=== PATIENT | female | born 1975 | race Hispanic/Latino ===

== ENCOUNTER 2025-02-08 18:47 | Emergency (ER) | payer OTHER ==
[~2025-02-08] VITALS: Ht 162.6 cm; Wt 72.6 kg
[2025-02-08 19:13] LABS: IMMATURE GRANULOCYTE ABSOLUTE 0.05 K/uL (0-1); NUCLEATED RED BLOOD CELLS 0.0 % (0.0-0.19); PLATELET COUNT (AUTO) 388 K/uL (130-400); RED BLOOD CELL COUNT(AUTO) 4.75 MIL/uL (4.00-5.50); RED CELL DISTRIBUTION WIDTH 13.1 % (11.0-15.5); WHITE BLOOD COUNT (AUTO) 11.0 K/uL (4.8-10.8)
[2025-02-08 19:23] LABS: CREATININE 0.7 mg/dL (0.5-1.0); GLOMERULAR FILTR. RATE CALC 107.0 mL/min (>90); GLUCOSE,RANDOM 100.0 mg/dL (70-105); SODIUM SERUM 135.0 mmol/L (136-145); UREA NITROGEN, BLOOD 9.0 mg/dL (7-18)
[2025-02-08] MEDS: ASPIRIN 325MG TAB PO ONE (19:30)
[2025-02-08 19:32] LABS: CREATINE KINASE, TOTAL 83.0 U/L (21-232)
--- NOTE | 2025-02-08 19:42 | ERN ---
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 Somewhere around 4:00 p.m. She stated that she was at the [employer] drive[place]through and her daughter was in the front passenger seat and she tried to reach with her right hand towards the daughter and suddenly felt pain on the right side of the chest. The pain was worse with any movement and moving the right shoulder. No nausea vomitings no heartburn or indigestion. The pain is located in the right breast area of the chest wall. She stated that it was sore to touch Temperature 97.7 pulse 88 respirations 20 blood pressure 125/95 with a pulse oximetry of 100% on room air She indicated that she recently had cryosurgery on her cervix Allergies: Coded Allergies: No Known Drug Allergies (Unverified Allergy, Unknown, 02/08/25) Past Medical History Past Medical History: No Pertinent History Surgical History: Other Surgical History Other: cryo cervix Family History: Negative Social History: Negative RN Note Reviewed/Agreed w/PFSH: Yes Review of System Dictation Constitutional: Negative for fever,chills, and weight loss Eyes: Negative for injury, pain,redness, and discharge ENT: Negative for injury,pain or swelling Cardiovascular: Positive for chest pain associated with the soreness to touch, palpitations, and edema Respiratory: Negative for shortness of breath, cough, and wheezing, Abdomen/GI: Negative for abdominal pain, nausea, vomiting, diarrhea, and constipation Back: Negative for injury and pain : Negative for injury, bleeding and discharge MS/Extremity: Negative for injury and deformity Skin: Negative for rash, and discoloration Neuro: Negative for headache, weakness, numbness, tingling, and seizure Psych: Negative for suicide ideation, homicidal ideation, and hallucinations Initial Vital Sign VS Vital Signs Date Time Temp Pulse Resp B/P (MAP) Pulse Ox O2 Delivery O2 Flow Rate FiO2 02/08/25 18:49 97.7 88 20 125/95 100 Room Air 0 02/08/25 18:53 21 Physical Exam Dictation General: awake, alert, NAD Head/Face: Normocephalic, atraumatic Eyes: PERRL, EOMI, vision at baseline ENT: oral cavity clear, TMs clear, no signs of infection Neck: Trachea midline, supple, no nuchal rigidity Cardiovascular: RRR, normal S1/S2, No MRGs, no JVD reproducible pain in the right chest area worse with movement Respiratory: CTAB, no respiratory distress, No rales or wheezes Abdomen: Soft, non-tender, non-distended, normal bowel sounds, no guarding or rebound. Skin: Warm, dry, normal turgor, no rash MS/Extremity: Pulses equal, no cyanosis, neurovascular intact, FROM Neuro: COAx4, GCS 15, strength 5/5, CN 2-12 intact, normal cerebellar exam, normal gait, Psych: Normal behavior, mood, and affect normal Extremities-trace edema without any palpable cords, Homans sign is negative Results (Laboratory/Radiology) Laboratory/Radiology Laboratory Tests Test 02/08/25 19:07 02/08/25 19:36 White Blood Count 11.0 K/uL (4.8-10.8) H Red Blood Count 4.75 MIL/uL (4.00-5.50) Hemoglobin 13.9 g/dL (12.0-16.0) Hematocrit 40.3 % (36-48) Mean Corpuscular Volume 84.8 fL (79-99) Mean Corpuscular Hemoglobin 29.3 pg (27.0-33.0) Mean Corpuscular Hemoglobin Concent 34.5 g/dL (32.0-36.0) Red Cell Distribution Width 13.1 % (11.0-15.5) Platelet Count 388 K/uL (130-400) Mean Platelet Volume 9.0 fL (7.5-10.5) Immature Granulocyte % (Auto) 0.5 % (0-1) Neutrophils (%) (Auto) 66.9 % (40.0-77.0) Lymphocytes (%) (Auto) 21.6 % (21.0-51.0) Monocytes (%) (Auto) 7.0 % (3.0-13.0) Eosinophils (%) (Auto) 3.4 % (0.0-8.0) Basophils (%) (Auto) 0.6 % (0.0-5.0) Neutrophils # (Auto) 7.3 K/uL (1.8-7.7) Lymphocytes # (Auto) 2.4 K/uL (1.0-4.8) Monocytes # (Auto) 0.8 K/uL (0.1-1.0) Eosinophils # (Auto) 0.37 K/uL (0.00-0.70) Basophils # (Auto) 0.07 K/uL (0.00-0.20) Absolute Immature Granulocyte (auto 0.05 K/uL (0-1) Nucleated Red Blood Cells 0.0 % (0.0-0.19) Sodium Level 135 mmol/L (136-145) L Potassium Level 3.8 mmol/L (3.5-5.1) Chloride Level 101 mmol/L (101-111) Carbon Dioxide Level 28 mmol/L (21-32) Blood Urea Nitrogen 9 mg/dL (7-18) Creatinine 0.7 mg/dL (0.5-1.0) Glomerular Filtration Rate Calc 107 mL/min (>90) Random Glucose 100 mg/dL (70-105) Total Calcium 8.7 mg/dL (8.5-10.1) Total Creatine Kinase 83 U/L (21-232) Troponin I High Sensitivity < 4 ng/L (4-50) L Urine Color LIGHT-YELLOW (YELLOW) Urine Appearance CLEAR (CLEAR) Urine pH 5.0 (5.0-8.0) Urine Specific [place] 1.008 (1.001-1.031) Urine Protein NEGATIVE mg/dL (NEGATIVE) Urine Glucose (UA) NEGATIVE mg/dL (NEGATIVE) Urine Ketones NEGATIVE mg/dL (NEGATIVE) Urine Occult Blood NEGATIVE (NEGATIVE) Urine Nitrate NEGATIVE (NEGATIVE) Urine Bilirubin NEGATIVE mg/dL (NEGATIVE) Urine Urobilinogen 0.2 mg/dL (0.2-1.0) Urine Leukocyte Esterase 75 Cynthia/uL (NEGATIVE) H Urine RBC 2-5 /HPF (0-1) H Urine WBC 2-5 /HPF (0-1) H Urine Squamous Epithelial Cells RARE /HPF (0-2) Urine Bacteria RARE /HPF (None Seen) Urine HCG, Qualitative NEGATIVE (NEGATIVE) Labs Reviewed?: Yes EKG Comment: Twelve lead EKG done on 02/08/2025 at 6:46 p.m. showed a heart rate of 79, NV interval 114, QRS duration 73, QT/QTC 352/404 Impression normal sinus rhythm with nonspecific changes. EKG rhythm strip shows a normal sinus rhythm with no acute STT wave changes. Interpreted by ER MD Dr. Russell Repeat EKG on 02/08/2025 at 8:55 p.m. showed a heart rate of 94 NV interval 138 QRS 67 QT/QTC 317/396 Impression normal sinus rhythm with no acute STT wave changes. ED Course ED Course Orders Procedure Category Date Status Time Cbc With Differential LAB 02/08/25 Complete 19:00 Chest 1vw RAD 02/08/25 Resulted 19:00 12 Lead Ekg Tracing- EKG 02/08/25 Logged Technical 19:00 Creatine Kinase, Total LAB 02/08/25 Complete 19:00 Troponin I High LAB 02/08/25 Complete Sensitivity 19:00 Aspirin 325mg Tab PHA 02/08/25 Complete (Aspirin 325mg Tab) 19:00 Urinalysis Profile LAB 02/08/25 Complete 19:00 Basic Metabolic Panel LAB 02/08/25 Complete 19:00 ,Urine Test LAB 02/08/25 Complete 19:00 Culture Urine DEREK 02/08/25 In Process 19:49 Ketorolac PHA 02/08/25 Complete Tromethamine 15mg/Ml 20:00 Current Medications Medications (Trade) Dose Ordered Sig/Mica Route PRN Reason Start Time Stop Time Status Last Admin Dose Admin Aspirin (Aspirin 325mg Tab) 325 mg ONCE ONCE PO 02/08/25 19:00 02/08/25 19:10 DC 02/08/25 19:30 Ketorolac Tromethamine (toRADol) 15 mg ONCE ONCE IM 02/08/25 20:00 02/08/25 20:01 DC 02/08/25 20:25 Vital Signs Date Time Temp Pulse Resp B/P (MAP) Pulse Ox O2 Delivery O2 Flow Rate FiO2 02/08/25 21:13 98.2 86 18 94/56 98 Room Air* 0 02/08/25 20:21 98.6 80 18 122/86 98 Room Air* 0 02/08/25 18:53 97.9 88 20 125/95 100 Room Air* 0 02/08/25 18:49 97.7 88 20 125/95 100 Room Air 0 We will perform diagnostic labs, imaging and administer medications according to the patient's complaint. Once the results are available, will review and personally interpreted the labs to rule out any acute life-threatening emergency the trach require immediate intervention and treatment. I will then re-evaluate the patient after treatment and diagnostic exams have return to determine whether the patient requires any further testing, can safely be discharged home or need further admission to hospital for additional treatment and evaluation. 7:55 p.m. labs reviewed CBC shows a white count of 11.8 otherwise with a normal limits. BNP 7 is significant for a sodium of 135 rest of the labs are pending 8:11 p.m. chest x-ray done still pending. Urinalysis is unremarkable urine test is negative. Troponins are unremarkable. 8:30 p.m. chest x-ray is unremarkable for any acute infiltrate. I updated the patient and her family member on all the negative results in the possibility of this chest pain which is reproducible more than likely is musculoskeletal in nature. Answered all the questions. We will discharge her to follow up with her primary care physician HEART Score Response (Comments) Value History: Low suspicion (0) 0 EKG: Normal 0 Age: 45-65yrs (+1) 1 Risk Factors: No known risk factors (0) 0 Initial Troponin: Normal limit (0) 0 HEART Score Risk: Low Risk for MACE (1-3) Total 1 Medical Decision Making MDM Differential diagnosis: Musculoskeletal pain, costochondritis, gastroesophageal reflux, cardiac chest pain with unstable angina Rationale: Tests considered and ordered secondary to shared decision making include: Previous outside records reviewed: Old ER visits. Risk of complication and/or morbidity or mortality of patient management: None Medications-Per medication reconciliation Need for hospitalization: Patient does not meet criteria for hospitalization. Need for emergency major/minor surgery: No There are no social concerns with this patient. Prescription drug management Prescriptions will include symptomatic care Patient's prior external medical records from other ER visits were reviewed by me as indicated. Prior testing and results from previous visits were reviewed. Prior tests were taken into account with medical decision making and resource utilization, independent historian/historians were used to obtain complete medical history. I independently interpreted the test that were performed, results were reviewed by me and considered findings on radiology if ordered. Medical management and examination interpretation discussions were had by me with other qualified healthcare professionals as indicated for the patient's care. Problem List Problem List: (1) Chest wall pain DX & DISP Disposition: Discharge Departure Impression: Primary Impression: Chest wall pain Condition: Stable Additional Instructions: Patient and the caregiver have been informed of all the diagnostic tests and the imaging conducted during the today's visit to the emergency room and has verbalized understanding of the results I have personally reviewed and interpreted all diagnostic exams performed here in the ER today as well as the vital signs documented by the nursing staff. The patient is now being discharged to home and should follow up with the primary care physician or the specialist as directed by the ER staff. Follow-up with primary care provider in 1 to 2 days. Take medications as directed here in the emergency room. Okay to continue home medications unless otherwise discussed during your visit in the emergency room today. Return to your nearest emergency room if symptoms worsen or if there is no improvement. Call 911 if you need immediate assistance. Take Tylenol or Motrin [id number] as needed and if no contraindications are present. Increase oral hydration. A wound culture or urine culture was ordered here in the emergency room department please follow-up with primary care provider and advise them to get repeat ports from our facility. If you had any Carlos wrap/splints that were applied here, please do not remove them until you see your primary care or specialty. TAO RUSSELL MD Feb 08, 2025 19:42
[2025-02-08 19:49] LABS: ADD UA MICROSCOPIC YES; APPEARANCE,URINE CLEAR (CLEAR); GLUCOSE, URINE (UA) NEGATIVE (NEGATIVE); LEUKOCYTE ESTERASE ,URINE 75 Leu/uL (NEGATIVE); NITRATE,URINE NEGATIVE (NEGATIVE); OCCULT BLOOD,URINE NEGATIVE (NEGATIVE)
[2025-02-08 19:50] LABS: HCG,QUALITATIVE URINE NEGATIVE (NEGATIVE)
[2025-02-08 19:51] LABS: SQUAMOUS EPITHELIAL CELL,UR RARE /HPF (0-2)
[2025-02-08 21:13] VITALS: BP 94/56; PULSE 86; RESP 18; TEMP 98.2; O2SAT 98
--- NOTE | 2025-02-08 21:15 | HMCIMG ---
EXAM: CR Chest, 1 View. CLINICAL HISTORY: chest pain COMPARISON: None provided. FINDINGS: LUNGS: There is no mass, infiltrate, or acute pulmonary abnormality. PLEURAL SPACES: No pleural effusion or pneumothorax. MEDIASTINUM: The cardiomediastinal silhouette is within normal limits. BONES: No aggressive appearing osseous lesion seen. IMPRESSION: No acute cardiopulmonary pathology is evident. /[place]
--- NOTE | 2025-02-09 10:25 | EKG ---
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
--- NOTE | 2025-02-10 15:08 | EKG ---
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
== END 2025-02-08 21:19 | disposition home or self-care (01) ==
LOC: EDH 18:47
DX: R07.89 Other chest pain (principal); Z79.899 Other long term (current) drug therapy
CPT/HCPCS: 99285; 71045; 82550; 84484; 80048; 85025; 87086; 81001; 81025; 36415; 96372; 93005 ×2; J1885